=== PATIENT | female | born 1945 | race Caucasian/White ===

== ENCOUNTER 2020-08-29 07:35 | Outpatient (REF) | payer MEDICARE, OTHER, SELFPAY ==
[2020-08-29 12:23] LABS: Thyroid Stimulating Hormone 1.18 uIU/mL (0.32-4.0); Vitamin D 25-OH Total 55.3 ng/mL (>30)
[2020-08-29 12:40] LABS: Alanine Aminotransferase 25 U/L (0-31); Albumin Level 4.2 g/dL (3.5-5.0); Alkaline Phosphatase 87 U/L (39-117); Anion Gap 12 (12-20); Aspartate Amino Transferase 29 U/L (5-31); Bilirubin Total 0.7 mg/dL (0.0-1.0); Blood Urea Nitrogen 15 mg/dL (9-16); Calcium 9.8 mg/dL (8.4-10.2); Carbon Dioxide 29 mmol/L (22-29); Chloride 106 mmol/L (96-108); Estimated Glomerular Filt Rate > 60; Glucose Fasting 94 mg/dL (60-99); Potassium 4.3 mmol/L (3.3-5.1); Sodium 143 mmol/L (135-145); Total Protein 7.1 g/dL (6.5-8.0)
[2020-08-29 13:45] LABS: Cholesterol 183 mg/dL; HDL Cholesterol 75 mg/dL; LDL Cholesterol Calculated 89 mg/dl; Triglycerides 95 mg/dL
[2020-08-31 13:06] LABS: Calcium (PTHI) 9.8 mg/dL (8.6-10.4); PTHI 40 pg/mL (14-64)
== END 2020-08-29 07:36 | disposition home or self-care (01) ==
LOC: HO.HMGCLDS 07:35
PROVIDERS: PCP Internal Medicine; Visit Provider Obstetrics & Gynecology Gynecology
DX: Z00.00 Encounter for general adult medical examination without abnormal findings (principal); M85.80 Other specified disorders of bone density and structure, unspecified site; I45.6 Pre-excitation syndrome
CPT/HCPCS: 36415; 80053; 80061; 82306; 83970; 84443

== ENCOUNTER 2021-11-24 08:01 | Outpatient (REF) | payer MEDICARE, OTHER, SELFPAY ==
[2021-11-24 11:13] LABS: MANUAL DIFF FLAG NO
[2021-11-24 11:17] LABS: Basophils Absolute Auto 0.1 X10*3/uL (0.0-0.2); Basophils Percent Auto 0.8 % (0-2); Eosinophils Absolute Auto 0.1 X10*3/uL (0.0-0.4); Hemoglobin 12.6 g/dl (12.0-16.0); Imm Gran Abs Auto 0.02 X10*3/uL (0.00-0.03); Imm Gran Pct Auto 0.3 % (0.0-0.4); Lymphocytes Percent Auto 30.3 % (20-40); Mean Corpuscular HGB Conc 31.5 g/dl (31.0-35.0); Mean Corpuscular Hemoglobin 29.1 pg (27.0-33.0); Mean Corpuscular Volume 92.4 fL (80.0-98.0); Mean Platelet Volume 10.8 fL (9.4-12.3); Monocytes Absolute Auto 0.5 X10*3/uL (0.1-1.2); Monocytes Percent Auto 8.4 % (2-11); Neutrophils Absolute Auto 3.7 x10*3/uL (2.0-8.3); Neutrophils Percent Auto 58.2 % (45-73); Platelet Count 236 X10*3/uL (160-400); Red Blood Count 4.33 X10*6/uL (4.20-5.50); Red Cell Distribution Width 13.4 % (11.0-16.0); White Blood Count 6.4 X10*3/uL (4.8-10.8)
[2021-11-24 11:48] LABS: Alanine Aminotransferase 25 U/L (0-31); Albumin Level 4.2 g/dL (3.5-5.0); Alkaline Phosphatase 82 U/L (39-117); Anion Gap 13 (12-20); Aspartate Amino Transferase 26 U/L (5-31); Bilirubin Total 0.4 mg/dL (0.0-1.0); Blood Urea Nitrogen 22 mg/dL (9-16); Calcium 9.6 mg/dL (8.4-10.2); Carbon Dioxide 29 mmol/L (22-29); Chloride 105 mmol/L (96-108); Cholesterol 180 mg/dL; Estimated Glomerular Filt Rate > 60; Glucose Fasting 94 mg/dL (60-99); HDL Cholesterol 68 mg/dL; LDL Cholesterol Calculated 98 mg/dl; Potassium 4.4 mmol/L (3.3-5.1); Sodium 143 mmol/L (135-145); Total Protein 7.1 g/dL (6.5-8.0); Triglycerides 71 mg/dL
== END 2021-11-24 08:02 | disposition home or self-care (01) ==
LOC: HO.HMGCLDS 08:01
PROVIDERS: PCP Internal Medicine; Visit Provider Internal Medicine
DX: Z00.00 Encounter for general adult medical examination without abnormal findings (principal); M85.80 Other specified disorders of bone density and structure, unspecified site
CPT/HCPCS: 36415; 80053; 80061; 85025

== ENCOUNTER 2022-02-02 09:42 | Outpatient (REF) | payer MEDICARE, OTHER, SELFPAY ==
[2022-02-02 12:29] LABS: TSH reflex Free T4 1.25 uIU/mL (0.32-4.0)
[2022-02-02 15:17] LABS: Vitamin D 25-OH Total 56.2 ng/mL (>30)
== END 2022-02-02 09:43 | disposition home or self-care (01) ==
LOC: HO.HMGCLDS 09:42
PROVIDERS: PCP Internal Medicine; Visit Provider Internal Medicine
DX: R63.4 Abnormal weight loss (principal); M85.80 Other specified disorders of bone density and structure, unspecified site; E55.9 Vitamin D deficiency, unspecified
CPT/HCPCS: 36415; 82306; 84443

== ENCOUNTER 2023-05-01 07:33 | Outpatient (REF) | payer MEDICARE, OTHER, SELFPAY ==
[2023-05-01 11:35] LABS: MANUAL DIFF FLAG NO
[2023-05-01 11:41] LABS: Basophils Absolute Auto 0.1 X10*3/uL (0.0-0.2); Basophils Percent Auto 0.9 % (0-2); Eosinophils Absolute Auto 0.2 X10*3/uL (0.0-0.4); Eosinophils Percent Auto 3.6 % (0-4); Hematocrit 42.2 % (37.0-47.0); Hemoglobin 13.2 g/dl (12.0-16.0); Imm Gran Abs Auto 0.02 X10*3/uL (0.00-0.03); Imm Gran Pct Auto 0.3 % (0.0-0.4); Lymphocytes Absolute Auto 2.5 X10*3/uL (1.2-4.9); Lymphocytes Percent Auto 37.8 % (20-40); Mean Corpuscular HGB Conc 31.3 g/dl (31.0-35.0); Mean Corpuscular Hemoglobin 29.1 pg (27.0-33.0); Mean Corpuscular Volume 93.2 fL (80.0-98.0); Mean Platelet Volume 11.5 fL (9.4-12.3); Monocytes Absolute Auto 0.6 X10*3/uL (0.1-1.2); Monocytes Percent Auto 8.6 % (2-11); Neutrophils Absolute Auto 3.2 x10*3/uL (2.0-8.3); Neutrophils Percent Auto 48.8 % (45-73); Platelet Count 236 X10*3/uL (160-400); Red Blood Count 4.53 X10*6/uL (4.20-5.50); Red Cell Distribution Width 13.4 % (11.0-16.0); White Blood Count 6.6 X10*3/uL (4.8-10.8)
[2023-05-01 12:09] LABS: Alanine Aminotransferase 24 U/L (0-31); Albumin Level 4.2 g/dL (3.5-5.0); Alkaline Phosphatase 94 U/L (39-117); Anion Gap 10 (12-20); Aspartate Amino Transferase 31 U/L (5-31); Bilirubin Total 0.5 mg/dL (0.0-1.0); Blood Urea Nitrogen 22 mg/dL (9-16); Carbon Dioxide 31 mmol/L (22-29); Chloride 107 mmol/L (96-108); Cholesterol 201 mg/dL (<200); Estimated Glomerular Filt Rate > 60; Glucose Fasting 98 mg/dL (60-99); HDL Cholesterol 82 mg/dL (>40); LDL Cholesterol Calculated 104 mg/dL (<100); Potassium 4.4 mmol/L (3.3-5.1); Sodium 144 mmol/L (135-145); Total Protein 7.6 g/dL (6.5-8.0); Triglycerides 78 mg/dL (<150)
[2023-05-01 12:29] LABS: TSH reflex Free T4 1.24 uIU/mL (0.32-4.0)
== END 2023-05-01 07:34 | disposition home or self-care (01) ==
LOC: HO.HMGCLDS 07:33
PROVIDERS: PCP Internal Medicine; Visit Provider Internal Medicine
DX: Z00.00 Encounter for general adult medical examination without abnormal findings (principal); R63.4 Abnormal weight loss; E55.9 Vitamin D deficiency, unspecified
CPT/HCPCS: 36415; 80053; 80061; 82306; 84443; 85025

== ENCOUNTER 2023-05-05 07:48 | Outpatient (AMB) | payer MEDICARE, OTHER, SELFPAY ==
--- NOTE | 2023-05-05 08:02 | A.OFFPC_ITS ---
Vital Signs 05/05/23 08:03 Height 5 ft 8.5 in Weight 151 lb BMI 22.6 BP 126/77 Blood Pressure Location Rt brachial Position Sitting Pulse 87 Pulse Source Pulse Oximeter Pulse Oximetry (%) 98 Oxygen Delivery Method Room Air Intake Visit Reasons: Annual PE Intake Note: Pt is here today for her PE Allergies No Known Allergies Allergy (Verified 05/05/23 08:02) Tobacco use date assessed: 05/05/23 Fall risk assessment: No Falls in past year Last assessed Fall Risk: 05/05/23 Dental Screening Dental Screen Date: 05/05/23 Did you have a dental visit in the last 12 months?: Yes Did you have a dental problem in the last 6 months where you did not have access to dental care?: Yes Was dental information given to patient?: Patient has dentist HPI Annual PE HPI Details Patient presents for physical. She has been exercising 5 times a week walking and weight-bearing exercises with personal banking representative. Patient follows up with mobile security architect for osteoporosis and is due for repeat DEXA next year [facility] Medical History (Updated 05/05/23 @ 08:31 by Mercedez Rain MD) Annual physical exam Vvdqa-Fomaogcoa-Kqmbd (WPW) pattern Basal cell carcinoma Osteopenia Surgical History (Updated 05/05/23 @ 08:31 by Mercedez Rain MD) H/O colonoscopy Family History Father Substance use disorder Mother Lung cancer Social History Household Members Other:: ,lives in 55+ community, exercise daily Housing: House Alcohol intake: current Alcohol intake frequency: does not drink Patient Tobacco Use Status: Never used Tobacco e-Cigarette/Vaping Use: Never Used Current occupational status: retired Cognitive needs: No Hearing needs: No Vision needs: Yes Questionnaire PHQ-9 Over the last 2 weeks, how often have you been bothered by any of the following problems? 1. Little interest or pleasure in doing things: not at all 2. Feeling down, depressed, or hopeless: not at all 3. Trouble falling or staying asleep, or sleeping too much: not at all 4. Feeling tired or having little energy: not at all 5. Poor appetite or overeating: not at all 6. Feeling bad about yourself - or that you are a failure or have let yourself or your family down: not at all 7. Trouble concentrating on things, such as reading the newspaper or watching television: not at all 8. Moving or speaking so slowly that other people could have noticed. Or the opposite - being so fidgety or restless that you have been moving around a lot more than usual: not at all 9. Thoughts that you would be better off or of hurting yourself in some way: not at all Total score: 0 Source: Developed by Drs. Jhony Jasso, Thalia Rasmussen, Jonathan Rosado and colleagues, with an educational michael from [employer]. Thrive Questionnaire Date Thrive assessed: 05/05/23 I am a: Patient What is your living situation today?: I have a steady place to live Within the past 12 months, did the food you bought not last and you didn't have the money to get more?: Never true Within the past 12 months, did you worry whether your food would run out before you got money to buy more?: Never true Do you have trouble paying for medicines?: No Do you have trouble getting transportation to medical appointments?: No Do you have trouble paying your heating and electricity bill?: No Do you have trouble taking care of your child, family member or friend?: No Do you have trouble with day-to-day activities such as bathing, preparing meals, shopping, managing finances, etc.?: No Are you currently unemployed and looking for a job?: No Are you interested in more education?: No THRIVE Score: 0 AUDIT C Alcohol Use Questionnaire (AUDIT-C) 1. How often do you have a drink containing alcohol?: Never Total Score: 0 NILTON-7 AMB Questionnaire NILTON-7 Date NILTON - 7 assessed: 05/05/23 Feeling nervous, anxious, or on edge: 0 = Not at all Not being able to stop or control worryin = Not at all Worrying too much about different things: 0 = Not at all Trouble relaxin = Not at all Being so restless that it is hard to sit still: 0 = Not at all Becoming easily annoyed or irritable: 0 = Not at all Feeling afraid as if something awful might happen: 0 = Not at all Total NILTON-7 score (0-4 normal; 5-9 mild; 10-14 moderate; 15-21 severe): 0 Source: Developed by Drs. Jhony Jasso, Thalia Rasmussen, Jonathan Rosado and colleagues, with an educational michael from [employer]. Review of Systems Const All systems reviewed & are unremarkable except as noted in HPI and below Reports no additional complaints Eyes Reports no additional complaints ENT Reports no additional complaints Card Reports no additional complaints Resp Reports no additional complaints GI Reports no additional complaints Reports no additional complaints Physical exam (Primary Care) Vital Signs: Last Vital Signs Pulse 87 05/05/23 08:03 BP 126/77 05/05/23 08:03 Pulse Ox 98 05/05/23 08:03 Oxygen Delivery Method Room Air 05/05/23 08:03 BMI result Body Mass Index 22.6 Tobacco/Smoking Status: Tobacco use Status Tobacco use date assessed 05/05/23 05/05/23 08:05 Patient Tobacco Use Status Never used Tobacco 05/05/23 08:05 e-Cigarette/Vaping Use Never Used 05/05/23 08:05 PHQ-9: PHQ-9 Score PHQ-9: Total score 0 05/05/23 08:08 Thrive Assessment: Date of Thrive Assessment Date Thrive assessed 05/05/23 05/05/23 08:08 Const General: no acute distress HENMT Head: Yes normal to inspection Ears: hearing grossly normal bilaterally Face and sinus: Yes normal facial exam Throat: Yes posterior oropharynx normal Eyes General: appearance normal, both eyes and all related structures Neck Neck: Yes no lymphadenopathy and Yes supple Resp Effort & Inspection: normal respiratory effort Auscultation: clear to auscultation bilaterally Cardio Rhythm: regular rhythm Heart sounds: S1 normal heart sound present and S2 normal heart sound present GI Inspection: Yes normal to inspection Palpation (GI): Soft to palpation Percussion: Yes normal to percussion Auscultation: normal bowel sounds Assessment and Plan Assessment & Plan (1) Osteopenia: Comment: DEXA by mobile security architect repeat 2020, 11/2022 f/u by Dr. Baker Code(s): M85.80 - Other specified disorders of bone density and structure, unspecified site Plan: Continue vitamin-D supplement weight-bearing exercises and patient will obtain a copy of her DEXA for our record from mobile security [facility] (2) Annual physical exam: Code(s): Z00.00 - Encounter for general adult medical examination without abnormal findings Plan: Well-balanced diet regular physical activity discussed with the patient. She is up-to-date with mammogram and colonoscopy. Patient will return in 1 year Coding Level of Care Code Est Pt Prev Care >65y(37532) Diagnoses Osteopenia M85.80 Annual physical exam Z00.00
[2023-05-05 08:03] VITALS: BP 126/77; PULSE 87; O2SAT 98; BMI 22.6
== END 2023-05-05 08:40 | disposition home or self-care (01) ==
PROVIDERS: PCP Internal Medicine; Visit Provider Internal Medicine
DX: Z00.00 Encounter for general adult medical examination without abnormal findings (principal); M85.80 Other specified disorders of bone density and structure, unspecified site
CPT/HCPCS: 99397

== ENCOUNTER 2024-01-14 10:53 | Outpatient (AMB) | payer MEDICARE, OTHER, SELFPAY ==
[2024-01-14 10:58] VITALS: BP 126/74; PULSE 91; O2SAT 98; BMI 22.9
--- NOTE | 2024-01-14 10:58 | MHC.PC.OV ---
Vital Signs 01/14/24 10:58 Height 5 ft 8.5 in Weight 153 lb BMI 22.9 BP 126/74 Blood Pressure Location Rt brachial Position Sitting Pulse 91 Pulse Source Pulse Oximeter Pulse Oximetry (%) 98 Oxygen Delivery Method Room Air Intake Visit Reasons: LT shoulder pain Intake Note: Pt is here today for a sick visit. Pt c/o L shoulder pain. Allergies No Known Allergies Allergy (Verified 01/14/24 11:12) Medication List - Last Reconciled 01/14/24 by Mercedez Rain MD acetaminophen ER (Tylenol Arthritis Pain) 650 mg PO Q8H [B12 energy melt PO] [balance of nature PO] biotin mcg PO [collagen ultimate PO] [Mag Blue Elite magnesium + zinc + Vitamin D3 + blueberry ] [purity super pill Elite multi.+ krill oil + fish oil] zinc gluconate 50 mg PO DAILY Tobacco use date assessed: 01/14/24 Fall risk assessment: No Falls in past year Last assessed Fall Risk: 01/14/24 Dental Screening Dental Screen Date: 01/14/24 Did you have a dental visit in the last 12 months?: Yes Did you have a dental problem in the last 6 months where you did not have access to dental care?: No Was dental information given to patient?: Patient has dentist HPI LT shoulder pain HPI Details Pt c/o L shoulder pain started 2 months after lifting heavy bag. The pain is worse at night and when reaching overhead or behind her back. She denies any weakness in the left upper extremity. [facility] Medical History (Updated 05/05/23 @ 08:31 by Mercedez Rain MD) Annual physical exam Lmoam-Savwbwaix-Kmrkm (WPW) pattern Basal cell carcinoma Osteopenia Surgical History H/O colonoscopy Family History Father Substance use disorder Mother Lung cancer Social History Household Members Other:: ,lives in 55+ community, exercise daily Housing: House Alcohol intake: current Alcohol intake frequency: does not drink Patient Tobacco Use Status: Never used Tobacco e-Cigarette/Vaping Use: Never Used service: No Current occupational status: retired Cognitive needs: No Hearing needs: No Vision needs: Yes Questionnaire PHQ-9 Over the last 2 weeks, how often have you been bothered by any of the following problems? 1. Little interest or pleasure in doing things: not at all 2. Feeling down, depressed, or hopeless: not at all 3. Trouble falling or staying asleep, or sleeping too much: not at all 4. Feeling tired or having little energy: not at all 5. Poor appetite or overeating: not at all 6. Feeling bad about yourself - or that you are a failure or have let yourself or your family down: not at all 7. Trouble concentrating on things, such as reading the newspaper or watching television: not at all 8. Moving or speaking so slowly that other people could have noticed. Or the opposite - being so fidgety or restless that you have been moving around a lot more than usual: not at all 9. Thoughts that you would be better off or of hurting yourself in some way: not at all Total score: 0 Depression Screening Interpretation: Negative Depression Screening Done: Yes 35604 - PHQ-9 Billing: Yes Source: Developed by Drs. Jhony Jasso, Thalia Rasmussen, Jonathan Rosado and colleagues, with an educational michael from [employer]. Thrive Questionnaire Date Thrive assessed: 01/14/24 I am a: Patient What is your living situation today?: I have a steady place to live Within the past 12 months, did the food you bought not last and you didn't have the money to get more?: Never true Within the past 12 months, did you worry whether your food would run out before you got money to buy more?: Never true Do you have trouble paying for medicines?: No Do you have trouble getting transportation to medical appointments?: No Do you have trouble paying your heating and electricity bill?: No Do you have trouble taking care of your child, family member or friend?: No Do you have trouble with day-to-day activities such as bathing, preparing meals, shopping, managing finances, etc.?: No Are you currently unemployed and looking for a job?: No Are you interested in more education?: No THRIVE Score: 0 AUDIT C Alcohol Use Questionnaire (AUDIT-C) 1. How often do you have a drink containing alcohol?: Never 3. How often do you have six or more drinks on one occasion?: Never Total Score: 0 NILTON-7 AMB Questionnaire NILTON-7 Date NILTON - 7 assessed: 05/05/23 Source: Developed by Drs. Jhony Jasso, Thalia Rasmussen, Jonathan Rosado and colleagues, with an educational michael from [employer]. Review of Systems Const All systems reviewed & are unremarkable except as noted in HPI and below Card Reports no additional complaints Resp Reports no additional complaints GI Reports no additional complaints Physical exam (Primary Care) Vital Signs: Last Vital Signs Pulse 91 01/14/24 10:58 BP 126/74 01/14/24 10:58 Pulse Ox 98 01/14/24 10:58 Oxygen Delivery Method Room Air 01/14/24 10:58 BMI result Body Mass Index 22.9 Tobacco/Smoking Status: Tobacco use Status Tobacco use date assessed 01/14/24 01/14/24 10:59 Patient Tobacco Use Status Never used Tobacco 01/14/24 10:59 e-Cigarette/Vaping Use Never Used 01/14/24 10:59 PHQ-9: PHQ-9 Score PHQ-9: Total score 0 01/14/24 11:13 Depression Screening Interpretation: Negative Thrive Assessment: Date of Thrive Assessment Date Thrive assessed 01/14/24 01/14/24 10:59 Const General: no acute distress Resp Effort & Inspection: normal respiratory effort Auscultation: clear to auscultation bilaterally Cardio Rhythm: regular rhythm Heart sounds: S1 normal heart sound present and S2 normal heart sound present Extrem Other: Slightly decreased range of motion in left shoulder, there is posterior joint reproducible tenderness no soft tissue swelling erythema warmth Coding Level of Care Code Est Pt Level 3 (79863) Diagnoses Left shoulder tendinitis M77.8 Assessment & Plan Assessment & Plan (1) Left shoulder tendinitis: Code(s): M77.8 - Other enthesopathies, not elsewhere classified Category: Medical Plan: Prednisone taper as prescribed patient will be referred to physical therapy supportive care discussed with patient Orders: Orders PT Evaluation and Treatment Today M77.8 - Other enthesopathies, not elsewhere classified Medications: New prednisone Four tablets p.o. q.d. for 3 days then 3 tablets p.o. q.d. for 3 days then 2 tablets p.o. q.d. for 3 days then 1 tablet p.o. q.d. for 3 days 10 mg PO DAILY 30 tabs 0RF
== END 2024-01-14 12:07 | disposition home or self-care (01) ==
PROVIDERS: PCP Internal Medicine; Visit Provider Internal Medicine
DX: M77.8 Other enthesopathies, not elsewhere classified (principal)

== ENCOUNTER → 2024-01-14 10:53 | Outpatient (BNVA) | payer MEDICARE, OTHER, SELFPAY | PROVIDERS: PCP Internal Medicine; Visit Provider Internal Medicine | DX: M77.8 Other enthesopathies, not elsewhere classified (principal) | CPT/HCPCS: 96127; 99212 ==

== ENCOUNTER 2024-05-13 08:05 | Outpatient (REF) | payer MEDICARE, OTHER, SELFPAY ==
--- OUTSIDE RECORDS SUMMARY | 2024-05-13 08:10 | XMS_ITS | Patient Health Record ---
Author Organization [facility] Address [address] [place] [address] Care Team Providers Care Tank Operator Name Role Phone Mercedez Rain MD Primary Care Provider UnavailNano Napier Unavailable [phone] Allergies No Known Allergies Reason For Referral No Information Medications Medication SIG (Take, Route, Frequency, Duration) Notes Start Date End Date Status Vitamin D3 125 MCG (5000 UT) as directed Orally Active Collagen Ultra - as directed Orally Ultimate w/ peptides abd biotin Active Magnesium 400 MG as directed Orally Triple Complex Active Lysine 500 MG as directed Orally Active Vitamin B12 100 MCG as directed Orally Active Biotin 39327 MCG 1 tablet Orally Once a day for 30 day(s) Active Fish Oil 1000 MG 1 capsule Orally Once a day for 30 day(s) Active Krill Oil 1000 MG as directed Orally Active Zinc 50 MG 1 tablet Orally Once a day for 30 day(s) Active Calcium 1500 MG as directed Orally Active Immunizations Vaccine Route Administration Date Status Comme nts Influenza, live, intranasal Intramuscular 02/20/2011 Pendnathalia vincent Social History Tobacco Use: Social History Observation Description Date Details (start date - stop date) Never Smoker NA - NA Tobacco Use/Smoking Question Answer Notes Are you a nonsmoker Alcohol Screen (Audit-C) Question Answer Notes Did you have a drink contain ing alcohol in the past year? Yes How often did you have a dri nk containing alcohol in the past year? Monthly or less (1 point) How many drinks did you have on a typical day when you were drinking in the past year? 1 or 2 drinks (0 point) Points 1 Interpretation Negative Sexual History Question Answer Notes Had sex in the past 12 months (vaginal, oral, or anal)? Yes with Men only Prevention strategies discussed: Other Problems Problem Type SNOMED Code ICD Code Onset Dates Problem Status W/U Status Risk Notes Problem Postmenopausal atrophic vaginitis (02868616) Postmenopausal atrophic vaginitis (N95.2) Active confirmed Problem Postmenopausal bleeding (45412631) Postmenopausal bleeding (N95.0) Active confirmed Problem Age-related osteoporosis (419565437) Age-related osteoporosis without current pathological fracture (M81.0) Active confirmed Problem Menopausal symptom (93883574) Symptomatic menopausal or female climacteric states (627.2) Active confirmed Major Problem Osteoporosis (36798833) Unspecified osteoporosis (733.00) Active confirmed Diag Problem Gynecological examination normal (213056639057954) Routine gynecological examination (V72.31) Active confirmed Problem Screening for malignant neoplasm of colon (989948096) Special screening for malignant neoplasms, colon (V76.51) Active confirmed Major Vital Signs Temperature 97.3 degrees Fahrenheit 01/09/2024 Blood pressure diastolic 80 mm Hg 01/09/2024 Height 67 in 01/09/2024 Blood pressure systolic 124 mm Hg 01/09/2024 Weight 152 lbs 01/09/2024 BMI 23.8 kg/m2 01/09/2024 Encounters Encounter Location Date Provider Diagnosis [facility] [address] [place] [address] 05/29/2023 Nano Baker Age-related osteoporosis without current pathological fracture M81.[address] [address] 01/09/2024 Nano Baker Encounter for screening mammogram for malignant neoplasm of breast Z12.31 ; Age-related osteoporosis without current pathological fracture M81.0 ; Postmenopausal atrophic vaginitis N95.2 ; Encounter for gynecological examination (general) (routine) without abnormal findings Z01.419 and Dense breasts, unspecified R92.30 Assessments Encounter Date Diagnosis (ICD Code) Assessment Notes Treatment Notes Treatment Clinical Notes Section Notes 05/29/2023 Age-related osteoporosis without current pathological fracture (ICD-10 - M81.0) DISCUSSED DETERIORATING T-SCORES AND ITS IMPLICATIONS. ADEQUATE CALCIUM AND VIT D. WEIGHT BEARING EXERCISES. DISCUSSED MEDICATIONS LIKE FOSAMAX (BIPHOSPHANATES) BUT PAT REFUSED. SHE WANTS TO WAIT ANOTHER YEAR. WE WILL REPEAT HER BMD IN 2024 AND IF STILL WORSENING, THEN SHE WILL CONSIDER TX OPTIONS. 01/09/2024 Encounter for screening mammogram for malignant neoplasm of breast (ICD-10 - Z12.31) REGULAR MAMMOGRAMS AND SBE'S WERE RECOMMENDED. 01/09/2024 Age-related osteoporosis without current pathological fracture (ICD-10 - M81.0) DISCUSSED OSTEOPOROSIS AND ITS IMPACT ON HER HEALTH. ADEQUATE CALCIUM AND VIT D. WEIGHT BEARING EXERCISES. OSTEO PRECAUTIONS. REPEAT BMD IN 2024. 01/09/2024 Postmenopausal atrophic vaginitis (ICD-10 - N95.2) DISCUSSED FINDINGS, DX AND TX OPTIONS. PAT IS ASYMPTOMATIC. 01/09/2024 Encounter for gynecological examination (general) (routine) without abnormal findings (ICD-10 - Z01.419) NO MORE PAP TESTS. 01/09/2024 Dense breasts, unspecified (ICD-10 - R92.30) DISCUSSED DENSE BREASTS ON MAMMOGRAM AND ITS IMPLICATIONS. 3D MAMMOGRAMS WERE RECOMMENDED. Plan Of Treatment Pending Test Test Name Order Date MAMMOGRAM, SCREENING 12/22/2020 MAMMOGRAM, SCREENING 01/06/2023 MAMMOGRAM, SCREENING 01/09/2024 Ultrasound : Sono Hystergram 05/23/2021 ENDOMETRIAL BX 05/23/2021 25OH VITAMIN D 04/06/2020 COMPREHENSIVE METABOLIC PANEL 04/06/2020 N-TELOPEPTIDE CROSS 04/06/2020 PTH, INTACT 04/06/2020 TSH 04/06/2020 BONE DENSITY 12/22/2020 BONE DENSITY 12/07/2018 BONE DENSITY 01/09/2024 MM Digital Mammo Screening 12/22/2020 MM Digital Mammo Screening 01/06/2023 MM Digital Mammo Screening 01/09/2024 Next Appt Details Provider Name:Nano noble, 01/17/2025 08:20:00 AM, [address], [address], [place], [address], Insurance Providers Payer Name Payer Address Payer Phone Subscriber Number Group Number Insured Name Patient Relationship to Insured Coverage Start Date Coverage End Date MEDICARE [address] [place]IE [place] [id number] MARCELLO ANGEL Self - patient is the insured [facility] [address] [place] [id number] MARCELLO ANGEL Self - patient is the insured Medical (General) History Medical History History ICD Code Menopausal and female climacteric states N95.1 Age-related osteoporosis without current pathological fracture M81.0 Postmenopausal atrophic vaginitis N95.2 Disorder of bone density and structure, unspecified M85.9 Inconclusive mammogram R92.2 Postmenopausal bleeding N95.0 Mammographic heterogeneous density, bila teral breasts R92.333 Surgical History Surgery Date(Month/Year) Colonoscopy 2014 Basal Cell Removed from Face 2015 Dentla Implants Angle Glaucoma Surgery
--- OUTSIDE RECORDS SUMMARY | 2024-05-13 08:10 | XMS_ITS ---
Author Organization [facility] Address [address] [place] [address] Care Team Providers Care Maxillofacial Prosthetics Dentist Name Role Phone Mercedez Rain MD Primary Care Provider Nano Duong Unavailable [phone] Allergies No Known Allergies Results Component Value Reference Range Notes THIN PREP,HPV,YVONNE IF HPV+ ( >29YR)(DIAG) Reviewed date:01/10/2023 09:16:56 AM Interpretation: Performing Lab:Testing performed or reported by [facility], a Service of [facility], [address] [place] [address] Jcarlos Cade MD, Photographic Aide [facility]# [id number] Notes/Report: Patient Name: MARCELLO ANGEL Patient : 1945 (Age: 77) Lab Collection Date: 01/06/2023 Accession Date: 01/06/2023 Sign Out Date: 01/10/2023 Tissue Source: 1: 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 Atrophy. Satisfactory for evaluation. Procedures/Addenda: Human Papilloma Virus, High-Risk(Reflex GT) Status: Signed Out Interpretation: Negative Methodology: [employer] Aptima HPV mRNA assay (Nucleic Acid Amplification Test, NAAT) Clinical History: Date of Last Menstrual Period: miranda Menstrual History: Menopause Contraceptive History: not available Ancillary Testing: HPV (Reflex GT) Case imaged by the ThinPrep Imaging System with manual rescreening or review. 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+ Medications Medication SIG (Take, Route, Frequency, Duration) Notes Start Date End Date Status Vitamin D3 125 MCG (5000 UT) as directed Orally Active Calcium 1500 MG as directed Orally Active Magnesium 400 MG as directed Orally Triple Complex Active Collagen Ultra - as directed Orally Ultimate w/ peptides abd biotin Active Zinc 50 MG 1 tablet Orally Once a day for 30 day(s) Active Krill Oil 1000 MG as directed Orally Active Biotin 46450 MCG 1 tablet Orally Once a day for 30 day(s) Active Fish Oil 1000 MG 1 capsule Orally Once a day for 30 day(s) Active Social History Tobacco Use: Social History Observation [...] with Men only Prevention strategies discussed: Other Vital Signs Temperature 97.9 degrees Fahrenheit 01/07/20 23 Blood pressure systolic 120 mm Hg 01/07/20 23 Blood pressure diastolic 74 mm Hg 023 Height 67 in 01/06/2023 Weight 146 lbs 01/06/2023 BMI 22.86 kg/m2 01/06/2023 Encounters Encounter Location Date Provider Diagnosis Total [address] [place] [address] 01/06/2023 Nano Baker Encounter for gynecological examination (general) (routine) without abnormal findings Z01.419 ; Encounter for screening mammogram for malignant neoplasm of breast Z12.31 ; Age-related osteoporosis without current pathological fracture M81.0 ; Postmenopausal atrophic vaginitis N95.2 and Inconclusive mammogram R92.2 Assessments Encounter Date Diagnosis (ICD Code) Assessment Notes Treatment Notes Treatment Clinical Notes Section Notes 01/06/2023 Encounter for gynecological examination (general) (routine) without abnormal findings (ICD-10 - Z01.419) PAP TEST WITH HPV TYPING WAS OBTAINED. 01/06/2023 Encounter for screening mammogram for malignant neoplasm of breast (ICD-10 - Z12.31) REGULAR MAMMOGRAMS AND SBE'S WERE RECOMMENDED. 01/06/2023 Age-related osteoporosis without current pathological fracture (ICD-10 - M81.0) DISCUSSED OSTEOPOROSIS AND HER LATEST BMD RESULTS AND IMPLICATIONS OF DX ON HER HEALTH. ADEQUATE CALCIUM AND VIT D. WEIGHT BEARING EXERCISES. REPEAT BMD IN 2024. 01/06/2023 Postmenopausal atrophic vaginitis (ICD-10 - N95.2) DISCUSSED FINDINGS, DX AND TX OPTIONS. PAT IS ASYMPTOMATIC. 01/06/2023 Inconclusive mammogram (ICD-10 - R92.2) DISCUSSED DENSE BREASTS ON MAMMOGRAM AND ITS IMPLICATIONS. 3D MAMMOGRAMS WERE RECOMMENDED. Plan Of Treatment Treatment Notes Assessment Notes Encounter for gynecological examination (general) (routine) without abnormal findings PAP TEST WITH HPV TYPING WAS OBTAINED. Encounter for screening mamm ogram for malignant neoplasm of breast REGULAR MAMMOGRAMS AND SBE'S WERE RECOMMENDED. Age-related osteoporosis wit hout current pathological fracture DISCUSSED OSTEOPOROSIS AND HER LATEST BMD RESULTS AND IMPLICATIONS OF DX ON HER HEALTH. ADEQUATE CALCIUM AND VIT D. WEIGHT BEARING EXERCISES. REPEAT BMD IN 2024. Postmenopausal atrophic vaginitis DISCUSSED FINDINGS, DX AND TX OPTIONS. PAT IS ASYMPTOMATIC. Inconclusive mammogram DISCUSSED DENSE BREASTS ON MAMMOGRAM AND ITS IMPLICATIONS. 3D MAMMOGRAMS WERE RECOMMENDED. Pending Test Test Name Order Date MAMMOGRAM, SCREENING 01/06/2023 MM Digital Mammo Screening 01/06/2023 Next Appt Details Follow Up: 1 Year, Reason: Provider Name:Nano noble, 01/17/2025 08:20:00 AM, [address] [place] [address], [address], [place], [address], Progress Notes * MATEO ANGELOB:[birth year] (77 yo F)Acc No.[id number]:01/06/2023 PROGRESS NOTES Patient:?MARCELLO AGNEL Appointment Provider:?Nano noble M.D. 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 PAT ENTERED MENOPAUSE IN HER 50'S. SHE WAS 2 1/2 YEARS AGO AND HAD A NEW PARTNER THIS YEAR. SHE NOTED POSTCOITAL BLEEDING IN MAY 2022 AND HSONO AND EMB WERE NEGATIVE. SHE IS STILL WITH THE SAME PARTNER BUT THEY HAVE DECIDED NOT TO BE SEXUALLY ACTIVE. ?HER LAST MAMMOGRAM DONE IN AUGUST 2022 SHOWED DENSE BREASTS AND WAS NORMAL. HER LIFETIME BREAST CA RISK IS 4.9%. ?HER LAST PAP TEST IN 2018 WAS NEGATIVE AND HPV NEGATIVE. ?HER LAST BMD IN 2022 SHOWED SLIGHT WORSENING OF OSTEOPOROSIS FROM T-SCORE OF -2.6 AT [facility] IN 2019 TO -2.7 IN 2022. OSTEO WORK UP DONE IN 2019 WAS NORMAL. SHE REFUSES BIPHOSPHANATES. SHE SAYS SHE WILL BE MORE CONSCIOUS OF HER CALCIUM AND VIT D INTAKE AND WILL BE PERFORMING MORE STRENGTHENING EXERCISES. SHE HAS NO HX OF FRACTURES. ?SHE HAD A COLONOSCOPY DONE IN 2017. POLYPS WERE NOTED AND SHE HAS ANOTHER COLONOSCOPY SCHEDULED FOR 2023. ?PFIZER X 2. ???Annual:? Patient presents for annual exam, ages 60-85, postmenopausal. ?General Health Maintenance:?Current breast complaints:?no breast pain, mass, discharge, or skin changes ?Urinary problems:?patient reports no urinary health problems or bowel health problems ?Calcium intake:?takes adequate calcium via diet and supplementation ?Significant AIR CARGO GROUND OPERATIONS SUPERVISOR problems:?no significant eap clinician symptoms or problems * ROS:?general:?no?chest pain.?no?palpitations.?no?headache.?no?cough.?no?shortness of breath.?no?fever.?no?unexplained weight loss.?no?nausea/vomiting.?no?change in bowel movements.?no blood in stool.?no?genitourinary complaints.?no?skin complaints.? * Medical History:? 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 * OB History:?Total pregnancies?0.? * Surgical History:?Colonoscop y 2014Basal Cell Removed from Face 2015Dentla Implants Angle Glaucoma Surgery * Hospitalization/Major Diagno stic Procedure:?Denies Past Hospitalization * Family History:?Mother: dece ased 88 yrs, lung cancer, smoker.?Father: 70 yrs, mouth cancer, smoker.?Maternal aunt: ovarian cancer.? * Social History:?Tobacco Use:?Tobacco Use/Smoking?Are you a?nonsmoker ???Sexual History:?Sexual History?Had sex in the past 12 months (vaginal, oral, or anal)??Yes ?with?Men only ?Prevention strategies discussed:?Other ?Details of Sexual History?Are you sexually active??Yes ???Drugs/Alcohol:?Drugs?Have you used drugs other than those for medical reasons in the past 12 months??No ?Alcohol Screen (Audit-C)?Did you have a drink containing alcohol in the past year??Yes ?How often did you have a drink containing alcohol in the past year??Monthly or less (1 point) ?How many drinks did you have on a typical day when you were drinking in the past year??1 or 2 drinks (0 point) ?Points?1 ?Interpretation?Negative ???Miscellaneous:?no Children. ?Exercise: yes, walking. ?Home smoke detector use: yes. ?Marital status: - [place]. ?Natural support system: yes. ?Occupation: Retired. ?Sexually active: yes. * Medications:?TakingBiotin 10 000 MCG Tablet 1 tablet Orally Once a dayFish Oil 1000 MG Capsule 1 capsule Orally Once a dayKrill Oil 1000 MG Capsule as directed Orally Zinc 50 MG Tablet 1 tablet Orally Once a dayCalcium 1500 MG Tablet as directed Orally Vitamin D3 125 MCG (5000 UT) Capsule as directed Orally Collagen Ultra - Capsule as directed Orally , Notes: Ultimate w/ peptides abd biotinMagnesium 400 MG Capsule as directed Orally , Notes: Triple ComplexTaking Biotin 33394 MCG Tablet 1 tablet Orally Once a dayTaking Fish Oil 1000 MG Capsule 1 capsule Orally Once a dayTaking Krill Oil 1000 MG Capsule as directed Orally Taking Zinc 50 MG Tablet 1 tablet Orally Once a dayTaking Calcium 1500 MG Tablet as directed Orally Taking Vitamin D3 125 MCG (5000 UT) Capsule as directed Orally Taking Collagen Ultra - Capsule as directed Orally , Notes: Ultimate w/ peptides abd biotinTaking Magnesium 400 MG Capsule as directed Orally , Notes: Triple ComplexDiscontinuedmiSOPROStol 200 MCG Tablet 2 Orally night before procedureDiscontinued miSOPROStol 200 MCG Tablet 2 Orally night before procedure * Allergies:?N.K.D.A.no[Allerg ies Verified] Objective: * Vitals:?Ht: 67 in, Wt:146 lb s, BMI:22.86 Index, BP:120/74 mm Hg, Temp:97.9 F. * Examination: ???General Exam: ?CONSTITUTIONAL:?NECK/THYROID:?RESPIRATORY:?Auscultation: clear to auscultation bilaterally, Respiratory Effort: normal.?CARDIOVASCULAR:?Auscultation: regular rate and rhythm.?BREAST, Right:?BREAST, Left:?GASTROINTESTINAL:?MUSCULOSKELETAL:?SKIN:?NEURO/PSYCH:?Genitourinary: ?EXTERNAL GENITALIA:?VAGINA:?BLADDER:?URETHRA:?CERVIX:?UTERUS:?ADNEXA:?ANUS AND PERINEUM:? Assessment: * Assessment: 1.?Encounter for gynecologic al examination (general) (routine) without abnormal findings - Z01.419?2.?Encounter for screening mammogram for malignant neoplasm of breast - Z12.31?3.?Age-related osteoporosis without current pathological fracture - M81.0?4.?Postmenopausal atrophic vaginitis - N95.2?5.?Inconclusive mammogram - R92.2? Plan: * Treatment: Notes: PAP TEST WITH HPV TYPING WAS OBTAINED.??2.?Encounter for screening mammogram for malignant neoplasm of breast?Imaging: MM Digital Mammo Screening Notes: REGULAR MAMMOGRAMS AND SBE'S WERE RECOMMENDED.??3.?Age-related osteoporosis without current pathological fracture? Notes: DISCUSSED OSTEOPOROSIS AND HER LATEST BMD RESULTS AND IMPLICATIONS OF DX ON HER HEALTH. ADEQUATE CALCIUM AND VIT D. WEIGHT BEARING EXERCISES. REPEAT BMD IN 2024.??4.?Postmenopausal atrophic vaginitis? Notes: DISCUSSED FINDINGS, DX AND TX OPTIONS. PAT IS ASYMPTOMATIC.??5.?Inconclusive mammogram? Notes: DISCUSSED DENSE BREASTS ON MAMMOGRAM AND ITS IMPLICATIONS. 3D MAMMOGRAMS WERE RECOMMENDED.?? * Imaging:? * ?Imaging: MAMMOGRAM, SCR EENING * Procedure Codes:? * Preventive Medicine:? ??YOUR PREVENTIVE WELLNESS PLAN:?Osteoporosis prevention?Calcium, D, strength training.?Breast Cancer Screening (Mammogram):?annually.?Cervical Cancer Screening (Pap Smear):?q 3 years with HPV screen.?Colorectal Cancer Screening:?q 10 years.? * Follow Up:?1 Year * Images: Billing Information: * Visit Code:? [id number] Preventive Care Est Pt. Age 65 and over. * Procedure Codes:? * Sign off status: Completed true * Appointment Provider:?Nano Baker M.D. Date:?01/06/2023 Generated for Alison vincent/Tremayne/Nancyitting on:?05/13/2024 08:09 AM EST History and Physical Notes * HPI (History of Present Illness) Category Sub-Category Detail Notes Category Not es New/Follow-up Patient Consult PAT ENTERED MENOPAUSE IN HER 50'S. SHE WAS 2 1/2 YEARS AGO AND HAD A NEW PARTNER THIS YEAR. SHE NOTED POSTCOITAL BLEEDING IN MAY 2022 AND HSONO AND EMB WERE NEGATIVE. SHE IS STILL WITH THE SAME PARTNER BUT THEY HAVE DECIDED NOT TO BE SEXUALLY ACTIVE. HER LAST MAMMOGRAM DONE IN AUGUST 2022 SHOWED DENSE BREASTS AND WAS NORMAL. HER LIFETIME BREAST CA RISK IS 4.9%. HER LAST PAP TEST IN 2018 WAS NEGATIVE AND HPV NEGATIVE. HER LAST BMD IN 2022 SHOWED SLIGHT WORSENING OF OSTEOPOROSIS FROM T-SCORE OF -2.6 [facility] 2019 TO -2.7 IN 2022. OSTEO WORK UP DONE IN 2019 WAS NORMAL. SHE REFUSES BIPHOSPHANATES. SHE SAYS SHE WILL BE MORE CONSCIOUS OF HER CALCIUM AND VIT D INTAKE AND WILL BE PERFORMING MORE STRENGTHENING EXERCISES. SHE HAS NO HX OF FRACTURES. SHE HAD A COLONOSCOPY DONE IN 2017. POLYPS WERE NOTED AND SHE HAS ANOTHER COLONOSCOPY SCHEDULED FOR 2023. PFIZER X 2. 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 OPERATIONS SUPERVISOR problems:: n o significant eap clinician symptoms or problems Examination Category Sub-Category Detail Notes Category Not es General Exam CONSTITUTIONAL: General Appearan ce:: alert, in no acute distress, normal, well nourished NECK/THYROID: Inspection/Palpation:: normal Thyroid:: normal size and shape RESPIRATORY: Auscultation: clear to auscultation bilaterally, Respiratory Effort: normal CARDIOVASCULAR: Auscultation: regula r rate and rhythm GASTROINTESTINAL: Abdomen:: no masses, nontender , nondistended Liver and Spleen:: normal Hernias:: no hernias present, no inguina l adenopathy MUSCULOSKELETAL: Inspection/Palpation:: no clubb ing, cyanosis, or edema SKIN: Skin:: normal NEURO/PSYCH: Orientation:: time , place, pers on Mood/Affect:: normal BREAST, Right: Inspection/Palpation :: no discharge, no masses present, no nipple retraction, no skin changes, no skin dimpling, no tenderness, no lymphadenopathy, no axillary mass, no axillary tenderness BREAST, Left: Inspection/Palpation :: no discharge, no masses present, no nipple retraction, no skin changes, no skin dimpling, no tenderness, no lymphadenopathy, no axillary mass, no axillary tenderness Genitourinary EXTERNAL GENITALIA: External Genitalia:: nor mal, no lesions VAGINA: Vagina:: atrophic vaginal tissue , minimal moisture BLADDER: Bladder:: no mass, nontender URETHRA: Urethra:: no erythema or lesions present CERVIX: Cervix:: no lesions, nontender UTERUS: Uterus:: nontender, normal conto ur, normal mobility, normal size ADNEXA: Adnexa:: no masses, no tendernes s ANUS AND PERINEUM: Anus/Perineum:: visually norm al
--- OUTSIDE RECORDS SUMMARY | 2024-05-13 08:10 | XMS_ITS ---
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+ Medications Medication SIG (Take, Route, Frequency, Duration) Notes Start Date End Date Status Vitamin D3 125 MCG (5000 UT) as directed Orally Active Collagen Ultra - as directed Orally Ultimate w/ peptides abd biotin Active Magnesium 400 MG as directed Orally Triple Complex Active Zinc 50 MG 1 tablet Orally Once a day for 30 day(s) Active Calcium 1500 MG as directed Orally Active Lysine 500 MG as directed Orally Active Vitamin B12 100 MCG as directed Orally Active Biotin 22778 MCG 1 tablet Orally Once a day for 30 day(s) Active Fish Oil 1000 MG 1 capsule Orally Once a day for 30 day(s) Active Krill Oil 1000 MG as directed Orally Active Social History Tobacco Use: Social History [...] Prevention strategies discussed: Other Vital Signs Temperature 97.3 degrees Fahrenheit 01/09/20 24 Blood pressure systolic 124 mm Hg 01/09/20 24 Blood pressure diastolic 80 mm Hg 024 Height 67 in 01/09/2024 Weight 152 lbs 01/09/2024 BMI 23.8 kg/m2 01/09/2024 Encounters Encounter Location Date Provider Diagnosis Total [address] [place] [address] 01/09/2024 Nano Baker Encounter for screening mammogram for malignant neoplasm of breast Z12.31 ; Age-related osteoporosis without current pathological fracture M81.0 ; Postmenopausal atrophic vaginitis N95.2 ; Encounter for gynecological examination (general) (routine) without abnormal findings Z01.419 and Dense breasts, unspecified R92.30 Assessments Encounter Date Diagnosis (ICD Code) Assessment Notes Treatment Notes Treatment Clinical Notes Section Notes 01/09/2024 Encounter for screening mammogram for malignant [...] Treatment Treatment Notes Assessment Notes Encounter for screening mamm ogram for malignant neoplasm of breast REGULAR MAMMOGRAMS AND SBE'S WERE RECOMMENDED. Age-related osteoporosis wit hout current pathological fracture DISCUSSED OSTEOPOROSIS AND ITS IMPACT ON HER HEALTH. ADEQUATE CALCIUM AND VIT D. WEIGHT BEARING EXERCISES. OSTEO PRECAUTIONS. REPEAT BMD IN 2024. Postmenopausal atrophic vaginitis DISCUSSED FINDINGS, DX AND TX OPTIONS. PAT IS ASYMPTOMATIC. Encounter for gynecological examination (general) (routine) without abnormal findings NO MORE PAP TESTS. Dense breasts, unspecified DISCUSSED DENSE BREASTS ON MAMMOGRAM AND ITS IMPLICATIONS. 3D MAMMOGRAMS WERE RECOMMENDED. Pending Test Test Name Order Date MAMMOGRAM, SCREENING 01/09/2024 BONE DENSITY 01/09/2024 MM Digital Mammo Screening 01/09/2024 Next Appt Details Follow Up: 1 Year, Reason: Provider Name:Nano L Darlene noble, 01/17/2025 08:20:00 AM, [address], [address], [place], [address], Progress Notes * MATEO ANGELOB:[birth year] (78 yo F)Acc No.[id number]:01/09/2024 PROGRESS NOTES Patient:?MARCELLO ANGEL Appointment Provider:?Nano noble M.D. 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 PAT ENTERED MENOPAUSE IN HER 50'S.? SHE IS A AND NOT SEXUALLY ACTIVE.?? SHE TRAVELS FREQUENTLY AND FINDS PLEASURE IN TRAVELING AND SHARING.? SHE GIVE US ESTELA CALLING BOOKS REGULARLY. SHE HAS A HX OF POSTCOITAL BLEEDING IN 2022.? HSONO AND EMB WERE NEGATIVE.? NO RECURRENCE. HER LAST MAMMOGRAM DONE IN OCT 2023 SHOWED DENSE BREASTS AND WAS NORMAL.? HER LIFETIME BREAST CA RISK IS 4.9%. HER LAST PAP TEST IN 2022 WAS NEGATIVE AND HPV NEGATIVE. HER LAST BMD IN 2022 SHOWED OSTEOPOROSIS WITH T-SCORE OF -2.7 AT THE [facility].? THERE WAS NO SIGNIFICANT CHANGE COMPARED TO HER BMD IN 2019.? SHE REFUSES TX. SHE HAD COLONOSCOPIES DONE IN 2017 AND IN 2023. PFIZER X 2. ???Annual:? Patient presents for annual exam, ages 60-85, postmenopausal. 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 * Medical History:? * Hat Former History:?/ Para?0/0.?Sexual activity?currently sexually active.?Last Pap Smear:?01/06/23 NIL, NEG HPV, 12/07/18 NIL, NEG HPV, 10/2012.?Mammogram:?11/06/23 50-75% density, 08/28/22 50-75% density, 04/18/21 50-75% density, 03/14/20 50-75% density, 01/19/18 < 50% density, 01/15/16 < 50% density, 11/2013 with additional views of right breast normal.?LMP and menses?miranda.?Colonoscopy?07/2023, yes 07/2013.?Bone Density:?11/29/22, 03/14/20, 01/16/17, 11/2013.? * OB History:?Total pregnancies?0.? * Surgical History:?Colonoscop y 2014Basal Cell Removed from Face 2015Dentla Implants Angle Glaucoma Surgery * Hospitalization/Major Diagno stic Procedure:?No Hospitalization History. * Family History:?Mother: dece ased 88 yrs, [...] or 2 drinks (0 point) ?Points?1 ?Interpretation?Negative ???Miscellaneous:?Children: no. ?Exercise: yes, walking. ?Home smoke detector use: yes. ?Marital status: - [place]. ?Natural support system: yes. ?Occupation: Retired. ?Sexually active: yes. * Medications:?TakingLysine 50 0 MG Tablet as directed Orally Vitamin B12 100 MCG Tablet as directed Orally Biotin 15564 MCG Tablet 1 tablet Orally Once a day Fish Oil 1000 MG Capsule 1 capsule Orally Once a day Krill Oil 1000 MG Capsule as directed Orally Zinc 50 MG Tablet 1 tablet Orally Once a day Calcium 1500 MG Tablet as directed Orally Vitamin D3 125 MCG (5000 UT) Capsule as directed Orally Collagen Ultra - Capsule as directed Orally , Notes to Pharmacist: Ultimate w/ peptides abd biotinMagnesium 400 MG Capsule as directed Orally , Notes to Pharmacist: Triple ComplexMedication List reviewed and reconciled with the patientTaking Lysine 500 MG Tablet as directed Orally Taking Vitamin B12 100 MCG Tablet as directed Orally Taking Biotin 71890 MCG Tablet 1 tablet Orally Once a day Taking Fish Oil 1000 MG Capsule 1 capsule Orally Once a day Taking Krill Oil 1000 MG Capsule as directed Orally Taking Zinc 50 MG Tablet 1 tablet Orally Once a day Taking Calcium 1500 MG Tablet as directed Orally Taking Vitamin D3 125 MCG (5000 UT) Capsule as directed Orally Taking Collagen Ultra - Capsule as directed Orally , Notes to Pharmacist: Ultimate w/ peptides abd biotinTaking Magnesium 400 MG Capsule as directed Orally , Notes to Pharmacist: Triple ComplexMedication List reviewed and reconciled with the patient * Allergies:?N.K.D.A.no[Allerg ies Verified] Objective: * Vitals:?Ht: 67 in, Wt: 152 l bs, BMI:23.8Index, BP: 124/80 mm Hg, Temp: 97.3 F. * Examination: ???General Exam: ?CONSTITUTIONAL:?NECK/THYROID:?RESPIRATORY:?Auscultation: clear to auscultation bilaterally, Respiratory Effort: normal.?CARDIOVASCULAR:?Auscultation: regular rate and rhythm.?BREAST, Right:?BREAST, Left:?GASTROINTESTINAL:?MUSCULOSKELETAL:?SKIN:?NEURO/PSYCH:?Genitourinary: ?EXTERNAL GENITALIA:?VAGINA:?BLADDER:?URETHRA:?CERVIX:?UTERUS:?ADNEXA:?ANUS AND PERINEUM:? Assessment: * Assessment: 1.?Encounter for screening m ammogram for malignant neoplasm of breast - Z12.31???2.?Age-related osteoporosis without current pathological fracture - M81.0???3.?Postmenopausal atrophic vaginitis - N95.2???4.?Encounter for gynecological examination (general) (routine) without abnormal findings - Z01.419 (Primary)???5.?Dense breasts, unspecified - R92.30??? Plan: * Treatment: 2.?Encounter for screening m ammogram for malignant neoplasm of breast?Imaging: MM Digital Mammo Screening Notes: REGULAR MAMMOGRAMS AND SBE'S WERE RECOMMENDED.?? 3.?Age-related osteoporosis without current pathological fracture?Imaging: BONE DENSITY Notes: DISCUSSED OSTEOPOROSIS AND ITS IMPACT ON HER HEALTH. ADEQUATE CALCIUM AND VIT D. WEIGHT BEARING EXERCISES. OSTEO PRECAUTIONS. REPEAT BMD IN 2024.?? 4.?Postmenopausal atrophic v aginitis? Notes: DISCUSSED FINDINGS, DX AND TX OPTIONS. PAT IS ASYMPTOMATIC.?? 5.?Dense breasts, unspecifie d? Notes: DISCUSSED DENSE BREASTS ON MAMMOGRAM AND ITS IMPLICATIONS. 3D MAMMOGRAMS WERE RECOMMENDED.?? * Imaging:? * ?Imaging: MAMMOGRAM, SCR EENING * Procedure Codes:? * Preventive Medicine:? ??YOUR PREVENTIVE WELLNESS PLAN:?Osteoporosis prevention?Calcium, D, strength training.?Breast Cancer Screening (Mammogram):?annually.?Cervical Cancer Screening (Pap Smear):?q 3 years with HPV screen.?Colorectal Cancer Screening:?q 10 years.? * Follow Up:?1 Year * Images: Billing Information: * Visit Code:? 78120 Preventive Care Est Pt. Age 65 and over. * Procedure Codes:? * Sign off status: Completed true * Appointment Provider:?Nano Baker M.D. Date:?01/09/2024 Generated for Alison vincent/Tremayne/eTmadaysmitting on:?05/13/2024 08:10 AM EST History and Physical Notes * HPI (History of Present Illness) Category Sub-Category Detail Notes Category Not es New/Follow-up Patient Consult PAT ENTERED MENOPAUSE IN HER 50'S. SHE IS A AND NOT SEXUALLY ACTIVE. SHE TRAVELS FREQUENTLY AND FINDS PLEASURE IN TRAVELING AND SHARING. SHE GIVE US ESTELA CALLING BOOKS REGULARLY. SHE HAS A HX OF POSTCOITAL BLEEDING IN 2022. HSONO AND EMB WERE NEGATIVE. NO RECURRENCE. HER LAST MAMMOGRAM DONE IN OCT 2023 SHOWED DENSE BREASTS AND WAS NORMAL. HER LIFETIME BREAST CA RISK IS 4.9%. HER LAST PAP TEST IN 2022 WAS NEGATIVE AND HPV NEGATIVE. HER LAST BMD IN 2022 SHOWED OSTEOPOROSIS WITH T-SCORE OF -2.7 AT [facility]. THERE WAS NO SIGNIFICANT CHANGE COMPARED TO HER BMD IN 2019. SHE REFUSES TX. SHE HAD COLONOSCOPIES DONE IN 2017 AND IN 2023. PFIZER X 2. 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
--- OUTSIDE RECORDS SUMMARY | 2024-05-13 08:10 | XMS_ITS ---
Author Organization [facility] Address [address] [place] [address] Care Team Providers Care Complaint Operator Name Role Phone Mercedez Rain MD Primary Care Provider Nano Duong Unavailable [phone] Allergies No Known Allergies REASON FOR VISIT TALK OSTEOPOROSIS AND SUPPLEMENTS Medications Medication SIG (Take, Route, Frequency, Duration) Notes Start Date End Date Status Magnesium 400 MG as directed Orally Triple Complex Active Fish Oil 1000 MG 1 capsule Orally Once a day for 30 day(s) Active Biotin 82717 MCG 1 tablet Orally Once a day for 30 day(s) Active Zinc 50 MG 1 tablet Orally Once a day for 30 day(s) Active Krill Oil 1000 MG as directed Orally Active Vitamin D3 125 MCG (5000 UT) as directed Orally Active Calcium 1500 MG as directed Orally Active Collagen Ultra - as directed Orally Ultimate w/ peptides abd biotin Active Social History Tobacco Use: Social History [...] Prevention strategies discussed: Other Vital Signs Temperature 97.4 degrees Fahrenheit 05/29/19 24 Blood pressure systolic 120 mm Hg 05/29/19 24 Blood pressure diastolic 78 mm Hg 024 Height 67 in 05/29/2023 Weight 146 lbs 05/29/2023 BMI 22.86 kg/m2 05/29/2023 Encounters Encounter Location Date Provider Diagnosis [address] [place] [address] 05/29/2023 Nano Baker Age-related osteoporosis without current pathological fracture M81.0 Assessments Encounter Date Diagnosis (ICD Code) Assessment [...] WORSENING, THEN SHE WILL CONSIDER TX OPTIONS. Plan Of Treatment Treatment Notes Assessment Notes Age-related osteoporosis wit hout current pathological fracture DISCUSSED DETERIORATING T-SCORES AND ITS IMPLICATIONS. ADEQUATE CALCIUM AND VIT D. WEIGHT BEARING EXERCISES. DISCUSSED MEDICATIONS LIKE FOSAMAX (BIPHOSPHANATES) BUT PAT REFUSED. SHE WANTS TO WAIT ANOTHER YEAR. WE WILL REPEAT HER BMD IN 2024 AND IF STILL WORSENING, THEN SHE WILL CONSIDER TX OPTIONS. Next Appt Details Follow Up: prn, Reason: Provider Name:Nano noble, 01/17/2025 08:20:00 AM, [address] [place] [address], [address], [place], [address], Progress Notes * MATEO ANGELOB:[birth year] (77 yo F)Acc No.[id number]:05/29/2023 PROGRESS NOTES Patient:?MARCELLO ANGEL Appointment Provider:?Nano noble M.D. :1945???Age:77 Y???Sex:Female D ate:05/29/2023 Address:[address] [place], [place] [id number] Pcp:Mercedez Rain MD Subjective: * Chief Complaints: * ???TALK OSTEOPOROSIS AND SUP PLEMENTS * HPI: ???New/Follow-up Patient Consult:? PAT'S BMD SHOWS WORSENING OF T-SCORES. SHE IS HERE TO DISCUSSE THESE RESULTS AND TX OPTIONS. ?HER T-SCORES HAVE CONTINUED TO DETERIORATE WITH TIME. T-SCORES AT THE [facility] WAS -1.1 IN 2017, -2.6 IN 2019 AND -2.7 IN 2022. HER T-SCORES AT THE FEMORAL NECK WAS -1.6 IN 2017, -1.4 IN 2019 AND -2.5 IN 2022. BMD'S WERE DONE AT THE SAME PLACE. ?OSTEO WORK UP DONE IN 2020 AND AGAIN IN 2023 SHOWED NORMAL FINDINGS. SHE HAS NO KNOWN FAMILY HX OF OSTEOPOROSIS. * ROS:?general:?no?chest pain.?no?palpitations.?no?headache.?no?cough.?no?shortness of breath.?no?fever.?no?unexplained weight loss.?no?nausea/vomiting.?no?change in bowel movements.?no blood in stool.?no?genitourinary complaints.?no?skin complaints.? * Medical History:? * Spa Consultant History:?/ Para?0/0.?Sexual activity?currently sexually active.?Last Pap Smear:?01/06/23 NIL, NEG HPV, 12/07/18 NIL, NEG HPV, 10/2012.?Mammogram:?08/28/22 50-75% density, 04/18/21 50-75% density, 03/14/20 50-75% density, 01/19/18 < 50% density, 01/15/16 < 50% density, 11/2013 with additional views of right breast normal.?LMP and menses?miranda.?Colonoscopy?yes 07/2013.?Bone Density:?11/29/22, 03/14/20, 01/16/17, 11/2013.? * OB History:?Total pregnancies?0.? * Surgical History:?Colonoscop y 2014Basal Cell Removed from Face 2014Dentla Implants Angle Glaucoma Surgery * Hospitalization/Major Diagno [...] detector use: yes. ?Marital status: - [place] [place]. ?Natural support system: yes. ?Occupation: Retired. ?Sexually [...] directed Orally , Notes: Triple ComplexTaking Biotin 52606 MCG Tablet 1 tablet Orally Once a [...] Capsule as directed Orally , Notes: Triple Complex * Allergies:?N.K.D.A.no[Allerg ies Verified] Objective: * Vitals:?Ht: 67 in, Wt: 146 l bs, BMI:22.86 Index, BP: 120/78 mm Hg, Temp: 97.4 F. Assessment: * Assessment: 1.?Age-related osteoporosis without current pathological fracture - M81.0 (Primary)? Plan: * Treatment: * Procedure Codes:? * Follow Up:?prn * Images: Billing Information: * Visit Code:? * Procedure Codes:? * Sign off status: Completed true * Appointment Provider:?Nano Baker M.D. Date:?05/29/2023 Generated for Alison vincent/Tremayne/Nancyitting on:?05/13/2024 08:10 AM EST History and Physical Notes * HPI (History of Present Illness) Category Sub-Category Detail Notes Category Not es New/Follow-up Patient Consult PAT'S BMD SHOWS WORSENING OF T-SCORES. SHE IS HERE TO DISCUSSE THESE RESULTS AND TX OPTIONS. HER T-SCORES HAVE CONTINUED TO DETERIORATE WITH TIME. T-SCORES AT THE [facility] WAS -1.1 IN 2016, -2.6 IN 2019 AND -2.7 IN 2022. HER T-SCORES AT THE FEMORAL NECK WAS -1.6 IN 2016, -1.4 IN 2019 AND -2.5 IN 2022. BMD'S WERE DONE AT THE SAME PLACE. OSTEO WORK UP DONE IN 2020 AND AGAIN IN 2023 SHOWED NORMAL FINDINGS. SHE HAS NO KNOWN FAMILY HX OF OSTEOPOROSIS.
[2024-05-13 10:05] LABS: MANUAL DIFF FLAG NO
[2024-05-13 10:15] LABS: Basophils Absolute Auto 0.1 X10*3/uL (0.0-0.2); Basophils Percent Auto 0.9 % (0-2); Eosinophils Absolute Auto 0.2 X10*3/uL (0.0-0.4); Eosinophils Percent Auto 1.9 % (0-4); Hematocrit 41.2 % (37.0-47.0); Imm Gran Abs Auto 0.01 X10*3/uL (0.00-0.03); Imm Gran Pct Auto 0.1 % (0.0-0.4); Lymphocytes Absolute Auto 2.2 X10*3/uL (1.2-4.9); Lymphocytes Percent Auto 28.8 % (20-40); Mean Corpuscular HGB Conc 31.6 g/dl (31.0-35.0); Mean Corpuscular Hemoglobin 29.4 pg (27.0-33.0); Mean Corpuscular Volume 93.2 fL (80.0-98.0); Monocytes Absolute Auto 0.7 X10*3/uL (0.1-1.2); Neutrophils Absolute Auto 4.6 x10*3/uL (2.0-8.3); Neutrophils Percent Auto 59.3 % (45-73); Platelet Count 250 X10*3/uL (160-400); Red Blood Count 4.42 X10*6/uL (4.20-5.50); Red Cell Distribution Width 13.1 % (11.0-16.0); White Blood Count 7.8 X10*3/uL (4.8-10.8)
[2024-05-13 10:25] LABS: Alanine Aminotransferase 21 U/L (0-31); Albumin Level 4.3 g/dL (3.5-5.0); Alkaline Phosphatase 97 U/L (39-117); Anion Gap 13 (12-20); Aspartate Amino Transferase 28 U/L (5-31); Bilirubin Total 0.5 mg/dL (0.0-1.0); Blood Urea Nitrogen 24 mg/dL (9-16); Calcium 9.8 mg/dL (8.4-10.2); Carbon Dioxide 28 mmol/L (22-29); Chloride 102 mmol/L (96-108); Cholesterol 207 mg/dL (<200); Estimated Glomerular Filt Rate > 60; Glucose Fasting 96 mg/dL (60-99); HDL Cholesterol 72 mg/dL (>40); LDL Cholesterol Calculated 117 mg/dL (<100); Potassium 4.5 mmol/L (3.3-5.1); Sodium 138 mmol/L (135-145); Total Protein 7.9 g/dL (6.5-8.0); Triglycerides 93 mg/dL (<150)
== END 2024-05-13 08:06 | disposition home or self-care (01) ==
LOC: HO.HMGCLDS 08:05
PROVIDERS: PCP Internal Medicine; Visit Provider Internal Medicine
DX: Z00.00 Encounter for general adult medical examination without abnormal findings (principal); Z13.6 Encounter for screening for cardiovascular disorders
CPT/HCPCS: 36415; 80053; 80061; 85025

== ENCOUNTER 2024-06-11 08:41 | Outpatient (AMB) | payer MEDICARE, OTHER, SELFPAY ==
[2024-06-11 08:43] VITALS: BP 110/70; PULSE 89; RESP 18; TEMP 36.6; O2SAT 98; BMI 23.1
--- NOTE | 2024-06-11 08:43 | A.OFFPC_ITS ---
Vital Signs 06/11/24 08:43 Height 5 ft 8.5 in Weight 154 lb BMI 23.1 BP 110/70 Blood Pressure Location Lt brachial Position Sitting Respiration 18 Pulse 89 Pulse Source Pulse Oximeter Temp 97.8 F Temp Source Oral Pulse Oximetry (%) 98 Oxygen Delivery Method Room Air Intake Visit Reasons: Annual PE Intake Note: Pt is here today for PE. Allergies No Known Allergies Allergy (Verified 06/11/24 08:47) Medication List - Last Reconciled 06/11/24 by Mercedez Rain MD acetaminophen ER (Tylenol Arthritis Pain) 650 mg PO Q8H [B12 energy melt PO] [balance of nature PO] biotin mcg PO [collagen ultimate PO] [Mag Blue Elite magnesium + zinc + Vitamin D3 + blueberry ] [purity super pill Elite multi.+ krill oil + fish oil] zinc gluconate 50 mg PO DAILY Tobacco use date assessed: 06/11/24 Fall risk assessment: No Falls in past year Last assessed Fall Risk: 06/11/24 Dental Screening Dental Screen Date: 06/11/24 Did you have a dental visit in the last 12 months?: Yes Did you have a dental problem in the last 6 months where you did not have access to dental care?: No Was dental information given to patient?: Patient has dentist HPI Annual PE HPI Details Pt presents for PE. Pt follows up with diagnostic technician for osteoporosis, exercising and taking vit D supplement. PFSH Medical History Postoperative angle-closure glaucoma Annual physical exam Vpirs-Fnvxmraod-Eixsf (WPW) pattern Basal cell carcinoma Osteopenia Surgical History (Updated 06/11/24 @ 09:24 by Mercedez Rain MD) H/O colonoscopy Family History Father Substance use disorder Mother Lung cancer Social History Household Members Other:: ,lives in 55+ community, exercise daily Housing: House Alcohol intake: current Alcohol intake frequency: does not drink Patient Tobacco Use Status: Never used Tobacco e-Cigarette/Vaping Use: Never Used service: No Current occupational status: retired Cognitive needs: No Hearing needs: No Vision needs: Yes Questionnaire PHQ-9 Over the last 2 weeks, how often have you been bothered by any of the following problems? 1. Little interest or pleasure in doing things: not at all 2. Feeling down, depressed, or hopeless: not at all 3. Trouble falling or staying asleep, or sleeping too much: not at all 4. Feeling tired or having little energy: not at all 6. Feeling bad about yourself - or that you are a failure or have let yourself or your family down: not at all 7. Trouble concentrating on things, such as reading the newspaper or watching television: not at all 8. Moving or speaking so slowly that other people could have noticed. Or the opposite - being so fidgety or restless that you have been moving around a lot more than usual: not at all 9. Thoughts that you would be better off or of hurting yourself in some way: not at all Depression Screening Interpretation: Negative Depression Screening Done: Yes 33014 - PHQ-9 Billing: Yes Source: Developed by Drs. Jhony Jasso, Thalia Rasmussen, Jonathan Rosado and colleagues, with an educational michael from [employer]. Thrive Questionnaire Date Thrive assessed: 06/11/24 I am a: Patient What is your living situation today?: I have a steady place to live Within the past 12 months, did the food you bought not last and you didn't have the money to get more?: Never true Within the past 12 months, did you worry whether your food would run out before you got money to buy more?: Never true Do you have trouble paying for medicines?: No Do you have trouble getting transportation to medical appointments?: No Do you have trouble paying your heating and electricity bill?: No Do you have trouble taking care of your child, family member or friend?: No Do you have trouble with day-to-day activities such as bathing, preparing meals, shopping, managing finances, etc.?: No Are you currently unemployed and looking for a job?: No Are you interested in more education?: No Please select the resources that you would like help with: None THRIVE Score: 0 AUDIT C Alcohol Use Questionnaire (AUDIT-C) 1. How often do you have a drink containing alcohol?: Never 3. How often do you have six or more drinks on one occasion?: Never Total Score: 0 NILTON-7 AMB Questionnaire NILTON-7 Date NILTON - 7 assessed: 06/11/24 Feeling nervous, anxious, or on edge: 0 = Not at all Not being able to stop or control worryin = Not at all Worrying too much about different things: 0 = Not at all Trouble relaxin = Not at all Being so restless that it is hard to sit still: 0 = Not at all Becoming easily annoyed or irritable: 0 = Not at all Feeling afraid as if something awful might happen: 0 = Not at all Total NILTON-7 score (0-4 normal; 5-9 mild; 10-14 moderate; 15-21 severe): 0 Source: Developed by Drs. Jhony Jasso, Thalia Rasmussen, Jonathan Rosado and colleagues, with an educational michael from [employer]. NILTON-7 Assessment Billing NILTON-7 Assessment Tool: NILTON-7 Assessment 06911 Review of Systems Const All systems reviewed & are unremarkable except as noted in HPI and below Reports no additional complaints Eyes Reports no additional complaints ENT Reports no additional complaints Card Reports no additional complaints Resp Reports no additional complaints GI Reports no additional complaints Reports no additional complaints Physical exam (Primary Care) Vital Signs: Last Vital Signs Temp 97.8 F 06/11/24 08:43 Pulse 89 06/11/24 08:43 Resp 18 06/11/24 08:43 BP 110/70 06/11/24 08:43 Pulse Ox 98 06/11/24 08:43 Oxygen Delivery Method Room Air 06/11/24 08:43 BMI result Body Mass Index 23.1 Tobacco/Smoking Status: Tobacco use Status Tobacco use date assessed 06/11/24 06/11/24 08:56 Patient Tobacco Use Status Never used Tobacco 06/11/24 08:56 e-Cigarette/Vaping Use Never Used 06/11/24 08:56 Depression Screening Interpretation: Negative Thrive Assessment: Date of Thrive Assessment Date Thrive assessed 06/11/24 06/11/24 08:56 Const General: no acute distress HENMT Head: Yes normal to inspection Ears: hearing grossly normal bilaterally General nose exam: Normal external nose present Face and sinus: Yes normal facial exam Mouth: Normal oral and palatal mucosa present Eyes General: appearance normal, both eyes and all related structures Neck Neck: Yes no lymphadenopathy and Yes supple Resp Effort & Inspection: normal respiratory effort Auscultation: clear to auscultation bilaterally Cardio Rhythm: regular rhythm Heart sounds: S1 normal heart sound present and S2 normal heart sound present GI Inspection: Yes normal to inspection Palpation (GI): Soft to palpation Percussion: Yes normal to percussion Auscultation: normal bowel sounds Coding Level of Care Code Est Pt Prev Care >65y(65494) Diagnoses Annual physical exam Z00.00 Osteopenia M85.80 Additional Codes NILTON-7 Assessment Billing - NILTON-7 Assessment Tool: NILTON-7 Assessment 97913 ([id number]) PHQ-9 - 38338 - PHQ-9 Billing: Yes ([id number]) Assessment & Plan Assessment & Plan (1) Annual physical exam: Code(s): Z00.00 - Encounter for general adult medical examination without abnormal findings Category: Medical Plan: well balanced diet, regular exercise (2) Osteopenia: Comment: DEXA by diagnostic technician repeat 2020, 11/2022 f/u by Dr. Baker Code(s): M85.80 - Other specified disorders of bone density and structure, unspecified site Category: Medical Plan: Continue weight-bearing exercises and vitamin-D and patient follows up with diagnostic technician for repeat DEXA in the fall Orders: Orders Comprehensive [place]. Panel Fast 1 Year E55.9 - Vitamin D deficiency, unspecified, M85.80 - Other specified disorders of bone density and structure, unspecified site, Z00.00 - Encounter for general adult medical examination without abnormal findings Complete Blood Count Auto Diff 1 Year E55.9 - Vitamin D deficiency, unspecified, M85.80 - Other specified disorders of bone density and structure, unspecified site, Z00.00 - Encounter for general adult medical examination without abnormal findings Lipid Panel 1 Year E55.9 - Vitamin D deficiency, unspecified, M85.80 - Other specified disorders of bone density and structure, unspecified site, Z00.00 - Encounter for general adult medical examination without abnormal findings TSH reflex Free T4 1 Year E55.9 - Vitamin D deficiency, unspecified, M85.80 - Other specified disorders of bone density and structure, unspecified site, Z00.00 - Encounter for general adult medical examination without abnormal findings Vitamin D 25-OH Total 1 Year E55.9 - Vitamin D deficiency, unspecified, M85.80 - Other specified disorders of bone density and structure, unspecified site, Z00.00 - Encounter for general adult medical examination without abnormal findings
== END 2024-06-11 09:31 | disposition home or self-care (01) ==
LOC: HO.HMCC 08:42
PROVIDERS: PCP Internal Medicine; Visit Provider Internal Medicine
DX: Z00.00 Encounter for general adult medical examination without abnormal findings (principal); M85.80 Other specified disorders of bone density and structure, unspecified site

== ENCOUNTER → 2024-06-11 08:41 | Outpatient (BNVA) | payer MEDICARE, OTHER, SELFPAY | PROVIDERS: PCP Internal Medicine; Visit Provider Internal Medicine | DX: Z00.00 Encounter for general adult medical examination without abnormal findings (principal); M85.80 Other specified disorders of bone density and structure, unspecified site | CPT/HCPCS: 96127; 99397 ==